=== PATIENT | male | born 1970 | race Two or more races ===

== ENCOUNTER 2022-09-11 20:29 | Emergency (ER) | payer SELFPAY ==
[~2022-09-11] VITALS: Ht 193 cm; Wt 129.6 kg
[2022-09-11 20:31] VITALS: BP 131/86
== END 2022-09-11 23:53 | disposition left against medical advice (07) ==
LOC: M ED 20:29 → EDBD 20:29 → M ED 23:53
DX: Z53.21 Procedure and treatment not carried out due to patient leaving prior to being seen by health care provider (principal)